=== PATIENT | male | born 1965 | race Caucasian/White ===

== ENCOUNTER 2017-03-25 20:58 | Inpatient (IN) | payer BC, MEDICARE ==
[2017-03-25] MEDS ORDERED: NICOTINE 7MG PATCH. TD (21:45)
[2017-03-25] MEDS ORDERED: DEXTROSE 50% 25 GM / 50ML DISP.SYRIN. IV (21:45)
[2017-03-25] MEDS: IV NORMAL SALINE 1000ML BAG 1,000 ML IV (22:00)
[2017-03-25] MEDS ORDERED: VANCOMYCIN 2 GM in IV DEXTROSE 5 %-0.2 % NACL 500 ML IV (23:30)
[2017-03-25] MEDS: LORazepam 1 MG TABLET PO (23:35)
[2017-03-25] MEDS: HYDROmorphone 2 MG/ML VIAL IV (23:35)
[2017-03-25] MEDS: INSULIN ASPART 300 UNITS/3 ML INSULN.PEN SQ (23:45)
[2017-03-26 00:10] LABS: ADD MAN DIFF? NO
[2017-03-26 00:12] LABS: BASO # 0.1 x10^3/uL (0.0-0.2); BASO % 1 % (0-3); EOS # 0.4 x10^3/uL (0.0-0.7); EOS % 3 % (0-3); HEMATOCRIT 44.3 % (39.0-53.0); HEMOGLOBIN 15.5 g/dL (13.0-17.5); LYMPH # 2.5 x10^3/uL (1.0-4.8); LYMPH % 18 % (24-48); MEAN CORPUSCULAR HEMOGLOBIN 32 pg (25-35); MEAN CORPUSCULAR HGB CONC 35 g/dL (31-37); MEAN CORPUSCULAR VOLUME 90 fL (79-100); MONO # 0.8 x10^3/uL (0.0-1.1); MONO % 6 % (0-9); NEUT # 10.1 x10^3uL (1.8-7.7); NEUT % 72 % (31-73); PLATELET COUNT 192 x10^3/uL (140-400); RED BLOOD COUNT 4.92 x10^6/uL (4.30-5.70); RED CELL DISTRIBUTION WIDTH 12.1 % (11.5-14.5); WHITE BLOOD COUNT 13.9 x10^3/uL (4.0-11.0)
[2017-03-26 00:23] LABS: ANION GAP 5 (6-14); BLOOD UREA NITROGEN 22 mg/dL (8-26); CALCIUM 8.5 mg/dL (8.5-10.1); CARBON DIOXIDE 31 mmol/L (21-32); CHLORIDE 99 mmol/L (98-107); CREATININE 0.9 mg/dL (0.7-1.3); GFR 89.7; GLUCOSE 413 mg/dL (70-99); POTASSIUM 4.4 mmol/L (3.5-5.1); SODIUM 135 mmol/L (136-145)
[2017-03-26] MEDS: PIPERACILLIN/TAZOBACTAM 4.5 GM in IV DEXTROSE 5% 100 ML IV (00:34)
[2017-03-26] MEDS: VANCOMYCIN PER PHARMACY MC ×3 (01:20→13:05)
[2017-03-26] MEDS: VANCOMYCIN 1.25 GM in IV 1/2 NORMAL SALINE 250 ML IV (04:18)
[2017-03-26] MEDS: PIPERACILLIN/TAZO IV Push 4.5 GM VIAL. IVP ×4 (06:00→23:34)
[2017-03-26 07:06] LABS: POC GLUCOSE 391 mg/dL (70-99)
[2017-03-26 08:55] LABS: POC GLUCOSE 335 mg/dL (70-99)
[2017-03-26] MEDS: ENOXAPARIN 40 MG/0.4 ML SYRINGE. SQ (10:07)
[2017-03-26] MEDS: IV NORMAL SALINE 1000ML BAG 1,000 ML IV ×2 (10:07→17:12)
[2017-03-26] MEDS: IV RINGERS,LACTATED 1000ML 1,000 ML IV (10:12)
[2017-03-26] MEDS ORDERED: ONDANSETRON PF 4 MG/2 ML VIAL. IV (10:15)
[2017-03-26] MEDS ORDERED: HYDROmorphone 2 MG/ML VIAL IV (10:15)
[2017-03-26] MEDS ORDERED: MORPHINE SULFATE 2 MG/ML DISP.SYRIN. IV (10:15)
[2017-03-26] MEDS ORDERED: PROCHLORPERAZINE 10 MG/2 ML VIAL. IV (10:15)
[2017-03-26] MEDS ORDERED: LIDOCAINE 1% PF 2 ML VIAL. ID (10:15)
[2017-03-26] MEDS ORDERED: fentaNYL PF VIAL 100 MCG/2 ML VIAL IV (10:15)
[2017-03-26] MEDS: INSULIN ASPART 300 UNITS/3 ML INSULN.PEN SQ ×5 (10:23→21:58)
[2017-03-26] MEDS ORDERED: DEXAMETHASONE SOD PHOS 20 MG/5 ML VIAL. (10:26)
[2017-03-26] MEDS ORDERED: ONDANSETRON PF 4 MG/2 ML VIAL. (10:26)
[2017-03-26] MEDS ORDERED: PROPOFOL 20 ML IV (10:26)
[2017-03-26] MEDS ORDERED: LIDOCAINE 2% PF Vial for OR 5 ML VIAL. (10:26)
[2017-03-26] MEDS ORDERED: fentaNYL PF VIAL 100 MCG/2 ML VIAL (10:28)
[2017-03-26] MEDS ORDERED: MIDAZOLAM HCL/PF 2 MG/2 ML VIAL. (10:29)
[2017-03-26] MEDS ORDERED: ePHEDrine PF IN SALINE 50 MG/5 ML DISP.SYRIN IV (11:43)
[2017-03-26] MEDS: VANCOMYCIN 1.25 GM in IV DEXTROSE 5 %-0.2 % NACL 250 ML IV (12:00)
[2017-03-26 12:14] LABS: POC GLUCOSE 272 mg/dL (70-99)
[2017-03-26] MEDS ORDERED: INSULIN ASPART 300 UNITS/3 ML INSULN.PEN SQ ×2 (12:15→13:00)
[2017-03-26] MEDS: INSULIN ASPART 100 UNIT/ML 10ML VIAL. SQ ×2 (12:15→13:00)
[2017-03-26] MEDS ORDERED: INSULIN ASPART 100 UNIT/ML 10ML VIAL. SQ (12:18)
[2017-03-26] MEDS: fentaNYL PF VIAL 100 MCG/2 ML VIAL IV ×2 (12:32→12:44)
[2017-03-26 13:22] LABS: POC GLUCOSE 289 mg/dL (70-99)
[2017-03-26] MEDS ORDERED: VANCOMYCIN 1.25 GM in IV 1/2 NORMAL SALINE 250 ML IV (16:00)
[2017-03-26 16:58] LABS: POC GLUCOSE 420 mg/dL (70-99)
[2017-03-26 20:53] LABS: POC GLUCOSE 488 mg/dL (70-99)
[2017-03-26] MEDS ORDERED: INSULIN DETEMIR 300 UNITS/3 ML INSULN.PEN. SQ ×2 (21:00)
[2017-03-26] MEDS: INSULIN DETEMIR 300 UNITS/3 ML INSULN.PEN. SQ (21:59)
[2017-03-26] MEDS: LORazepam 1 MG TABLET PO (22:38)
[2017-03-26] MEDS: oxyCODONE/APAP 5/325 1 TAB TABLET PO (22:38)
[2017-03-27] MEDS: VANCOMYCIN 1.25 GM in IV 1/2 NORMAL SALINE 250 ML IV ×2 (01:14→13:00)
[2017-03-27] MEDS: oxyCODONE/APAP 5/325 1 TAB TABLET PO ×5 (04:09→21:22)
[2017-03-27] MEDS: IV NORMAL SALINE 1000ML BAG 1,000 ML IV ×4 (05:27→23:48)
[2017-03-27] MEDS: PIPERACILLIN/TAZO IV Push 4.5 GM VIAL. IVP ×4 (06:17→23:48)
[2017-03-27] MEDS: INSULIN ASPART 300 UNITS/3 ML INSULN.PEN SQ ×8 (08:00→17:36)
[2017-03-27] MEDS: LORazepam 1 MG TABLET PO ×3 (08:53→23:48)
[2017-03-27] MEDS: ENOXAPARIN 40 MG/0.4 ML SYRINGE. SQ (08:54)
[2017-03-27 09:12] LABS: POC GLUCOSE 401 mg/dL (70-99)
[2017-03-27 11:42] LABS: POC GLUCOSE 276 mg/dL (70-99)
[2017-03-27 12:36] LABS: VANC TR 9.8 mcg/mL (10.0-20.0)
[2017-03-27] MEDS: VANCOMYCIN PER PHARMACY MC (13:26)
[2017-03-27] MEDS ORDERED: 1/2 NORMAL SALINE IV (13:30)
[2017-03-27] MEDS ORDERED: VANCOMYCIN 1.5 GM in IV DEXTROSE 5 %-0.2 % NACL 500 ML IV (13:30)
[2017-03-27] MEDS ORDERED: VANCOMYCIN IV (13:30)
[2017-03-27] MEDS: VANCOMYCIN 1.5 GM in IV DEXTROSE 5 %-0.2 % NACL 500 ML IV (13:36)
[2017-03-27] MEDS: NEOMY/BACITR/POLYMYXIN OINT PACKET. TP ×2 (13:53→21:00)
[2017-03-27 16:49] LABS: POC GLUCOSE 246 mg/dL (70-99)
[2017-03-27] MEDS: LACTOBACILLUS RHAMNOSUS GG 1 CAPSULE. PO (21:21)
[2017-03-27 21:33] LABS: POC GLUCOSE 108 mg/dL (70-99)
[2017-03-28] MEDS: VANCOMYCIN 1.5 GM in IV DEXTROSE 5 %-0.2 % NACL 500 ML IV ×2 (01:12→13:30)
[2017-03-28] MEDS: oxyCODONE/APAP 5/325 1 TAB TABLET PO ×4 (04:14→22:07)
[2017-03-28] MEDS: PIPERACILLIN/TAZO IV Push 4.5 GM VIAL. IVP ×4 (05:23→23:58)
[2017-03-28 05:37] LABS: ADD MAN DIFF? NO
[2017-03-28 05:45] LABS: BASO # 0.1 x10^3/uL (0.0-0.2); BASO % 1 % (0-3); EOS # 0.3 x10^3/uL (0.0-0.7); EOS % 2 % (0-3); HEMATOCRIT 44.5 % (39.0-53.0); HEMOGLOBIN 15.5 g/dL (13.0-17.5); LYMPH # 2.7 x10^3/uL (1.0-4.8); LYMPH % 23 % (24-48); MEAN CORPUSCULAR HEMOGLOBIN 31 pg (25-35); MEAN CORPUSCULAR HGB CONC 35 g/dL (31-37); MEAN CORPUSCULAR VOLUME 89 fL (79-100); MONO # 0.7 x10^3/uL (0.0-1.1); MONO % 6 % (0-9); NEUT % 68 % (31-73); PLATELET COUNT 229 x10^3/uL (140-400); RED BLOOD COUNT 5.02 x10^6/uL (4.30-5.70); RED CELL DISTRIBUTION WIDTH 12.6 % (11.5-14.5); WHITE BLOOD COUNT 11.6 x10^3/uL (4.0-11.0)
[2017-03-28 06:01] LABS: ANION GAP 7 (6-14); BLOOD UREA NITROGEN 12 mg/dL (8-26); CALCIUM 8.9 mg/dL (8.5-10.1); CARBON DIOXIDE 30 mmol/L (21-32); CHLORIDE 100 mmol/L (98-107); CREATININE 0.8 mg/dL (0.7-1.3); GFR 102.7; GLUCOSE 282 mg/dL (70-99); POTASSIUM 4.6 mmol/L (3.5-5.1); SODIUM 137 mmol/L (136-145)
[2017-03-28 08:37] LABS: POC GLUCOSE 239 mg/dL (70-99)
[2017-03-28] MEDS: NEOMY/BACITR/POLYMYXIN OINT PACKET. TP ×2 (09:00→22:01)
[2017-03-28] MEDS: LACTOBACILLUS RHAMNOSUS GG 1 CAPSULE. PO ×2 (09:04→22:06)
[2017-03-28] MEDS: ENOXAPARIN 40 MG/0.4 ML SYRINGE. SQ (09:07)
[2017-03-28] MEDS: INSULIN ASPART 300 UNITS/3 ML INSULN.PEN SQ ×6 (09:15→18:19)
[2017-03-28] MEDS: LORazepam 1 MG TABLET PO ×2 (12:57→22:08)
[2017-03-28 13:30] LABS: POC GLUCOSE 224 mg/dL (70-99)
[2017-03-28] MEDS: LIDOCAINE (700MG/PATCH) PATCH. TD (14:07)
[2017-03-28 18:47] LABS: POC GLUCOSE 277 mg/dL (70-99)
[2017-03-28 21:26] LABS: POC GLUCOSE 192 mg/dL (70-99)
[2017-03-28] MEDS: INSULIN DETEMIR 300 UNITS/3 ML INSULN.PEN. SQ (22:13)
[2017-03-29 03:10] LABS: HEMOGLOBIN A1C 10.2 % (4.8-5.6)
[2017-03-29 05:22] LABS: ADD MAN DIFF? NO
[2017-03-29] MEDS: PIPERACILLIN/TAZO IV Push 4.5 GM VIAL. IVP ×2 (05:56→13:35)
[2017-03-29 06:10] LABS: BASO # 0.1 x10^3/uL (0.0-0.2); BASO % 1 % (0-3); EOS # 0.3 x10^3/uL (0.0-0.7); EOS % 4 % (0-3); HEMATOCRIT 40.7 % (39.0-53.0); HEMOGLOBIN 14.3 g/dL (13.0-17.5); LYMPH # 2.6 x10^3/uL (1.0-4.8); LYMPH % 37 % (24-48); MEAN CORPUSCULAR HEMOGLOBIN 31 pg (25-35); MEAN CORPUSCULAR HGB CONC 35 g/dL (31-37); MEAN CORPUSCULAR VOLUME 89 fL (79-100); MONO # 0.7 x10^3/uL (0.0-1.1); MONO % 10 % (0-9); NEUT # 3.4 x10^3uL (1.8-7.7); NEUT % 48 % (31-73); PLATELET COUNT 233 x10^3/uL (140-400); RED BLOOD COUNT 4.58 x10^6/uL (4.30-5.70); RED CELL DISTRIBUTION WIDTH 12.2 % (11.5-14.5); WHITE BLOOD COUNT 7.1 x10^3/uL (4.0-11.0)
[2017-03-29 06:22] LABS: ANION GAP 7 (6-14); BLOOD UREA NITROGEN 12 mg/dL (8-26); CALCIUM 8.2 mg/dL (8.5-10.1); CARBON DIOXIDE 29 mmol/L (21-32); CHLORIDE 106 mmol/L (98-107); CREATININE 0.8 mg/dL (0.7-1.3); GFR 102.7; GLUCOSE 190 mg/dL (70-99); POTASSIUM 4.1 mmol/L (3.5-5.1); SODIUM 142 mmol/L (136-145)
[2017-03-29 08:32] LABS: POC GLUCOSE 189 mg/dL (70-99)
[2017-03-29] MEDS: NEOMY/BACITR/POLYMYXIN OINT PACKET. TP ×2 (09:00→21:43)
[2017-03-29] MEDS: LACTOBACILLUS RHAMNOSUS GG 1 CAPSULE. PO ×2 (09:10→21:52)
[2017-03-29] MEDS: LIDOCAINE (700MG/PATCH) PATCH. TD (09:10)
[2017-03-29] MEDS: oxyCODONE/APAP 5/325 1 TAB TABLET PO ×2 (09:10→21:52)
[2017-03-29] MEDS: ENOXAPARIN 40 MG/0.4 ML SYRINGE. SQ (09:11)
[2017-03-29] MEDS: INSULIN ASPART 300 UNITS/3 ML INSULN.PEN SQ ×7 (09:20→22:00)
[2017-03-29 14:25] LABS: POC GLUCOSE 80 mg/dL (70-99)
[2017-03-29] MEDS ORDERED: cefTRIAXone SODIUM 2 GM in IV DEXTROSE 5% 100 ML IV (16:15)
[2017-03-29 17:08] LABS: POC GLUCOSE 292 mg/dL (70-99)
[2017-03-29] MEDS: cefTRIAXone IV Push 2 GM VIAL. IVP (17:09)
[2017-03-29 21:07] LABS: POC GLUCOSE 220 mg/dL (70-99)
[2017-03-29] MEDS: LORazepam 1 MG TABLET PO (21:52)
[2017-03-29] MEDS: INSULIN DETEMIR 300 UNITS/3 ML INSULN.PEN. SQ (21:59)
[2017-03-30 06:10] LABS: ADD MAN DIFF? NO
[2017-03-30 06:26] LABS: BASO # 0.1 x10^3/uL (0.0-0.2); BASO % 1 % (0-3); EOS # 0.3 x10^3/uL (0.0-0.7); EOS % 4 % (0-3); HEMATOCRIT 43.7 % (39.0-53.0); HEMOGLOBIN 15.1 g/dL (13.0-17.5); LYMPH # 2.5 x10^3/uL (1.0-4.8); LYMPH % 37 % (24-48); MEAN CORPUSCULAR HEMOGLOBIN 31 pg (25-35); MEAN CORPUSCULAR HGB CONC 35 g/dL (31-37); MEAN CORPUSCULAR VOLUME 88 fL (79-100); MONO # 0.7 x10^3/uL (0.0-1.1); MONO % 11 % (0-9); NEUT # 3.1 x10^3uL (1.8-7.7); NEUT % 47 % (31-73); PLATELET COUNT 263 x10^3/uL (140-400); RED BLOOD COUNT 4.95 x10^6/uL (4.30-5.70); RED CELL DISTRIBUTION WIDTH 12.2 % (11.5-14.5); WHITE BLOOD COUNT 6.7 x10^3/uL (4.0-11.0)
[2017-03-30 06:44] LABS: ANION GAP 6 (6-14); BLOOD UREA NITROGEN 14 mg/dL (8-26); CALCIUM 9.1 mg/dL (8.5-10.1); CARBON DIOXIDE 33 mmol/L (21-32); CHLORIDE 103 mmol/L (98-107); CREATININE 0.8 mg/dL (0.7-1.3); GFR 102.7; GLUCOSE 200 mg/dL (70-99); POTASSIUM 4.1 mmol/L (3.5-5.1); SODIUM 142 mmol/L (136-145)
[2017-03-30 07:25] LABS: SEDIMENTATION RATE 34 (0-15)
[2017-03-30 08:37] LABS: POC GLUCOSE 173 mg/dL (70-99)
[2017-03-30] MEDS: LACTOBACILLUS RHAMNOSUS GG 1 CAPSULE. PO ×2 (08:48→21:59)
[2017-03-30] MEDS: INSULIN ASPART 300 UNITS/3 ML INSULN.PEN SQ ×6 (08:53→17:22)
[2017-03-30] MEDS: NEOMY/BACITR/POLYMYXIN OINT PACKET. TP ×2 (08:55→22:05)
[2017-03-30] MEDS: LIDOCAINE (700MG/PATCH) PATCH. TD (08:55)
[2017-03-30] MEDS: oxyCODONE/APAP 5/325 1 TAB TABLET PO ×2 (08:56→21:59)
[2017-03-30 11:38] LABS: POC GLUCOSE 133 mg/dL (70-99)
[2017-03-30] MEDS ORDERED: cefTRIAXone SODIUM 2 GM in IV DEXTROSE 5% 100 ML IV (12:30)
[2017-03-30] MEDS: cefTRIAXone IV Push 2 GM VIAL. IVP (13:00)
[2017-03-30 17:08] LABS: POC GLUCOSE 243 mg/dL (70-99)
[2017-03-30 20:47] LABS: POC GLUCOSE 287 mg/dL (70-99)
[2017-03-30] MEDS: LORazepam 1 MG TABLET PO (22:00)
[2017-03-30] MEDS: INSULIN DETEMIR 300 UNITS/3 ML INSULN.PEN. SQ (22:05)
[2017-03-31 04:59] LABS: ADD MAN DIFF? NO
[2017-03-31 05:27] LABS: ANION GAP 9 (6-14); BLOOD UREA NITROGEN 12 mg/dL (8-26); CALCIUM 8.5 mg/dL (8.5-10.1); CARBON DIOXIDE 29 mmol/L (21-32); CHLORIDE 101 mmol/L (98-107); CREATININE 0.8 mg/dL (0.7-1.3); GFR 102.7; GLUCOSE 183 mg/dL (70-99); POTASSIUM 3.8 mmol/L (3.5-5.1); SODIUM 139 mmol/L (136-145)
[2017-03-31 05:29] LABS: BASO # 0.1 x10^3/uL (0.0-0.2); BASO % 1 % (0-3); EOS # 0.3 x10^3/uL (0.0-0.7); EOS % 4 % (0-3); HEMATOCRIT 42.2 % (39.0-53.0); HEMOGLOBIN 14.9 g/dL (13.0-17.5); LYMPH # 2.3 x10^3/uL (1.0-4.8); LYMPH % 34 % (24-48); MEAN CORPUSCULAR HEMOGLOBIN 32 pg (25-35); MEAN CORPUSCULAR HGB CONC 35 g/dL (31-37); MEAN CORPUSCULAR VOLUME 90 fL (79-100); MONO # 0.7 x10^3/uL (0.0-1.1); MONO % 11 % (0-9); NEUT # 3.5 x10^3uL (1.8-7.7); NEUT % 51 % (31-73); PLATELET COUNT 249 x10^3/uL (140-400); RED CELL DISTRIBUTION WIDTH 12.4 % (11.5-14.5); WHITE BLOOD COUNT 6.9 x10^3/uL (4.0-11.0)
[2017-03-31] MEDS: NEOMY/BACITR/POLYMYXIN OINT PACKET. TP ×2 (09:00→21:00)
[2017-03-31] MEDS: LIDOCAINE (700MG/PATCH) PATCH. TD (09:22)
[2017-03-31] MEDS: CEPHALEXIN 250 MG CAPSULE. PO ×4 (09:23→21:41)
[2017-03-31] MEDS: LACTOBACILLUS RHAMNOSUS GG 1 CAPSULE. PO ×2 (09:23→21:41)
[2017-03-31 09:28] LABS: POC GLUCOSE 175 mg/dL (70-99)
[2017-03-31] MEDS: INSULIN ASPART 300 UNITS/3 ML INSULN.PEN SQ ×6 (09:28→17:27)
[2017-03-31 12:26] LABS: POC GLUCOSE 235 mg/dL (70-99)
[2017-03-31 17:49] LABS: POC GLUCOSE 312 mg/dL (70-99)
[2017-03-31 21:29] LABS: POC GLUCOSE 389 mg/dL (70-99)
[2017-03-31] MEDS: INSULIN DETEMIR 300 UNITS/3 ML INSULN.PEN. SQ (21:46)
[2017-04-01 05:58] LABS: ADD MAN DIFF? NO
[2017-04-01 06:21] LABS: ANION GAP 8 (6-14); BLOOD UREA NITROGEN 19 mg/dL (8-26); CALCIUM 8.7 mg/dL (8.5-10.1); CARBON DIOXIDE 30 mmol/L (21-32); CHLORIDE 100 mmol/L (98-107); GFR 79.4; GLUCOSE 328 mg/dL (70-99); POTASSIUM 4.3 mmol/L (3.5-5.1); SODIUM 138 mmol/L (136-145)
[2017-04-01 06:43] LABS: BASO # 0.1 x10^3/uL (0.0-0.2); BASO % 1 % (0-3); EOS # 0.2 x10^3/uL (0.0-0.7); EOS % 3 % (0-3); HEMATOCRIT 44.5 % (39.0-53.0); HEMOGLOBIN 15.5 g/dL (13.0-17.5); LYMPH # 1.9 x10^3/uL (1.0-4.8); LYMPH % 27 % (24-48); MEAN CORPUSCULAR HEMOGLOBIN 32 pg (25-35); MEAN CORPUSCULAR HGB CONC 35 g/dL (31-37); MEAN CORPUSCULAR VOLUME 91 fL (79-100); MONO # 0.7 x10^3/uL (0.0-1.1); MONO % 10 % (0-9); NEUT # 4.2 x10^3uL (1.8-7.7); NEUT % 59 % (31-73); PLATELET COUNT 273 x10^3/uL (140-400); RED BLOOD COUNT 4.91 x10^6/uL (4.30-5.70); RED CELL DISTRIBUTION WIDTH 12.6 % (11.5-14.5); WHITE BLOOD COUNT 7.1 x10^3/uL (4.0-11.0)
[2017-04-01] MEDS: oxyCODONE/APAP 5/325 1 TAB TABLET PO ×2 (09:58→18:57)
[2017-04-01] MEDS: CEPHALEXIN 250 MG CAPSULE. PO ×4 (09:58→20:40)
[2017-04-01] MEDS: LACTOBACILLUS RHAMNOSUS GG 1 CAPSULE. PO ×2 (09:58→20:40)
[2017-04-01] MEDS: NEOMY/BACITR/POLYMYXIN OINT PACKET. TP ×2 (09:59→20:40)
[2017-04-01] MEDS: LIDOCAINE (700MG/PATCH) PATCH. TD (10:02)
[2017-04-01] MEDS: INSULIN ASPART 300 UNITS/3 ML INSULN.PEN SQ ×6 (10:12→18:57)
[2017-04-01 11:23] LABS: POC GLUCOSE 362 mg/dL (70-99)
[2017-04-01 11:23] LABS: POC GLUCOSE 320 mg/dL (70-99)
[2017-04-01 16:55] LABS: POC GLUCOSE 338 mg/dL (70-99)
[2017-04-01] MEDS: INSULIN DETEMIR 300 UNITS/3 ML INSULN.PEN. SQ (20:46)
[2017-04-02 01:01] LABS: POC GLUCOSE 275 mg/dL (70-99)
[2017-04-02 05:46] LABS: ADD MAN DIFF? NO
[2017-04-02 05:58] LABS: BASO # 0.1 x10^3/uL (0.0-0.2); BASO % 1 % (0-3); EOS # 0.4 x10^3/uL (0.0-0.7); EOS % 4 % (0-3); HEMATOCRIT 43.2 % (39.0-53.0); LYMPH # 2.9 x10^3/uL (1.0-4.8); LYMPH % 32 % (24-48); MEAN CORPUSCULAR HEMOGLOBIN 31 pg (25-35); MEAN CORPUSCULAR HGB CONC 35 g/dL (31-37); MEAN CORPUSCULAR VOLUME 90 fL (79-100); MONO # 0.9 x10^3/uL (0.0-1.1); MONO % 10 % (0-9); NEUT # 4.9 x10^3uL (1.8-7.7); NEUT % 53 % (31-73); PLATELET COUNT 247 x10^3/uL (140-400); RED BLOOD COUNT 4.78 x10^6/uL (4.30-5.70); RED CELL DISTRIBUTION WIDTH 12.1 % (11.5-14.5); WHITE BLOOD COUNT 9.2 x10^3/uL (4.0-11.0)
[2017-04-02 06:19] LABS: BLOOD UREA NITROGEN 22 mg/dL (8-26); CALCIUM 8.7 mg/dL (8.5-10.1); CARBON DIOXIDE 31 mmol/L (21-32); CHLORIDE 100 mmol/L (98-107); CREATININE 0.8 mg/dL (0.7-1.3); GFR 102.7; GLUCOSE 162 mg/dL (70-99)
[2017-04-02 06:33] LABS: ANION GAP 7 (6-14); POTASSIUM 4.3 mmol/L (3.5-5.1); SODIUM 138 mmol/L (136-145)
[2017-04-02 08:39] LABS: POC GLUCOSE 176 mg/dL (70-99)
[2017-04-02] MEDS: LACTOBACILLUS RHAMNOSUS GG 1 CAPSULE. PO ×2 (08:49→21:12)
[2017-04-02] MEDS: NEOMY/BACITR/POLYMYXIN OINT PACKET. TP ×2 (08:49→21:09)
[2017-04-02] MEDS: INSULIN ASPART 300 UNITS/3 ML INSULN.PEN SQ ×6 (08:56→18:27)
[2017-04-02] MEDS: LIDOCAINE (700MG/PATCH) PATCH. TD (08:57)
[2017-04-02] MEDS: CEPHALEXIN 250 MG CAPSULE. PO ×4 (08:58→21:12)
[2017-04-02] MEDS: oxyCODONE/APAP 5/325 1 TAB TABLET PO (18:28)
[2017-04-02 19:07] LABS: POC GLUCOSE 234 mg/dL (70-99)
[2017-04-02 20:01] LABS: POC GLUCOSE 205 mg/dL (70-99)
[2017-04-02] MEDS: INSULIN DETEMIR 300 UNITS/3 ML INSULN.PEN. SQ (21:09)
[2017-04-02 21:11] LABS: POC GLUCOSE 291 mg/dL (70-99)
[2017-04-03 05:15] LABS: ADD MAN DIFF? NO
[2017-04-03 05:31] LABS: BASO # 0.1 x10^3/uL (0.0-0.2); BASO % 1 % (0-3); EOS # 0.4 x10^3/uL (0.0-0.7); EOS % 4 % (0-3); HEMATOCRIT 44.2 % (39.0-53.0); HEMOGLOBIN 15.5 g/dL (13.0-17.5); LYMPH # 3.5 x10^3/uL (1.0-4.8); LYMPH % 37 % (24-48); MEAN CORPUSCULAR HEMOGLOBIN 31 pg (25-35); MEAN CORPUSCULAR HGB CONC 35 g/dL (31-37); MEAN CORPUSCULAR VOLUME 90 fL (79-100); MONO # 0.9 x10^3/uL (0.0-1.1); MONO % 9 % (0-9); NEUT # 4.8 x10^3uL (1.8-7.7); NEUT % 50 % (31-73); PLATELET COUNT 255 x10^3/uL (140-400); RED BLOOD COUNT 4.92 x10^6/uL (4.30-5.70); RED CELL DISTRIBUTION WIDTH 12.4 % (11.5-14.5); WHITE BLOOD COUNT 9.6 x10^3/uL (4.0-11.0)
[2017-04-03 05:54] LABS: ANION GAP 9 (6-14); BLOOD UREA NITROGEN 21 mg/dL (8-26); CALCIUM 8.6 mg/dL (8.5-10.1); CARBON DIOXIDE 28 mmol/L (21-32); CHLORIDE 101 mmol/L (98-107); CREATININE 0.8 mg/dL (0.7-1.3); GFR 102.7; GLUCOSE 149 mg/dL (70-99); SODIUM 138 mmol/L (136-145)
[2017-04-03] MEDS: LACTOBACILLUS RHAMNOSUS GG 1 CAPSULE. PO ×2 (09:10→22:44)
[2017-04-03] MEDS: CEPHALEXIN 250 MG CAPSULE. PO ×4 (09:10→22:44)
[2017-04-03] MEDS: NEOMY/BACITR/POLYMYXIN OINT PACKET. TP ×2 (09:14→22:44)
[2017-04-03] MEDS: LIDOCAINE (700MG/PATCH) PATCH. TD (09:14)
[2017-04-03] MEDS: INSULIN ASPART 300 UNITS/3 ML INSULN.PEN SQ ×6 (09:16→18:37)
[2017-04-03] MEDS: oxyCODONE/APAP 5/325 1 TAB TABLET PO ×2 (10:41→18:32)
[2017-04-03] MEDS: LORazepam 1 MG TABLET PO (18:32)
[2017-04-03 18:52] LABS: POC GLUCOSE 202 mg/dL (70-99)
[2017-04-03 18:52] LABS: POC GLUCOSE 293 mg/dL (70-99)
[2017-04-03 18:52] LABS: POC GLUCOSE 245 mg/dL (70-99)
[2017-04-03 21:57] LABS: POC GLUCOSE 236 mg/dL (70-99)
[2017-04-03] MEDS: INSULIN DETEMIR 300 UNITS/3 ML INSULN.PEN. SQ (22:53)
[2017-04-04 07:40] LABS: POC GLUCOSE 241 mg/dL (70-99)
[2017-04-04] MEDS: LIDOCAINE (700MG/PATCH) PATCH. TD (09:44)
[2017-04-04] MEDS: NEOMY/BACITR/POLYMYXIN OINT PACKET. TP ×2 (09:47→21:00)
[2017-04-04] MEDS: LACTOBACILLUS RHAMNOSUS GG 1 CAPSULE. PO ×2 (09:52→20:57)
[2017-04-04] MEDS: oxyCODONE/APAP 5/325 1 TAB TABLET PO ×2 (09:52→20:57)
[2017-04-04] MEDS: CEPHALEXIN 250 MG CAPSULE. PO ×4 (09:53→20:57)
[2017-04-04] MEDS: INSULIN ASPART 300 UNITS/3 ML INSULN.PEN SQ ×6 (09:59→17:52)
[2017-04-04 11:29] LABS: POC GLUCOSE 235 mg/dL (70-99)
[2017-04-04 16:38] LABS: POC GLUCOSE 130 mg/dL (70-99)
[2017-04-04 20:52] LABS: POC GLUCOSE 181 mg/dL (70-99)
[2017-04-04] MEDS: LORazepam 1 MG TABLET PO (20:57)
[2017-04-04] MEDS: INSULIN DETEMIR 300 UNITS/3 ML INSULN.PEN. SQ (21:06)
[2017-04-05] MEDS: LORazepam 1 MG TABLET PO ×2 (06:23→21:07)
[2017-04-05] MEDS: oxyCODONE/APAP 5/325 1 TAB TABLET PO ×2 (06:23→18:09)
[2017-04-05] MEDS: LIDOCAINE (700MG/PATCH) PATCH. TD (08:11)
[2017-04-05] MEDS: LACTOBACILLUS RHAMNOSUS GG 1 CAPSULE. PO ×2 (08:12→21:07)
[2017-04-05] MEDS: NEOMY/BACITR/POLYMYXIN OINT PACKET. TP ×2 (08:12→21:00)
[2017-04-05] MEDS: CEPHALEXIN 250 MG CAPSULE. PO ×4 (08:12→21:07)
[2017-04-05] MEDS: INSULIN ASPART 300 UNITS/3 ML INSULN.PEN SQ ×6 (08:17→18:17)
[2017-04-05 11:29] LABS: POC GLUCOSE 97 mg/dL (70-99)
[2017-04-05 16:24] LABS: POC GLUCOSE 200 mg/dL (70-99)
[2017-04-05 21:03] LABS: POC GLUCOSE 299 mg/dL (70-99)
[2017-04-05 21:03] LABS: POC GLUCOSE 196 mg/dL (70-99)
[2017-04-05] MEDS: INSULIN DETEMIR 300 UNITS/3 ML INSULN.PEN. SQ (21:12)
[2017-04-06 07:36] LABS: POC GLUCOSE 184 mg/dL (70-99)
[2017-04-06] MEDS: NEOMY/BACITR/POLYMYXIN OINT PACKET. TP ×2 (09:00→21:00)
[2017-04-06] MEDS: LIDOCAINE (700MG/PATCH) PATCH. TD (09:00)
[2017-04-06] MEDS: CEPHALEXIN 250 MG CAPSULE. PO ×4 (09:13→21:44)
[2017-04-06] MEDS: LACTOBACILLUS RHAMNOSUS GG 1 CAPSULE. PO ×2 (09:13→21:43)
[2017-04-06] MEDS: oxyCODONE/APAP 5/325 1 TAB TABLET PO ×4 (09:14→22:15)
[2017-04-06] MEDS: INSULIN ASPART 300 UNITS/3 ML INSULN.PEN SQ ×6 (09:20→17:23)
[2017-04-06 11:36] LABS: POC GLUCOSE 140 mg/dL (70-99)
[2017-04-06] MEDS: LORazepam 1 MG TABLET PO (13:15)
[2017-04-06 15:22] LABS: POC GLUCOSE 122 mg/dL (70-99)
[2017-04-06 20:59] LABS: POC GLUCOSE 206 mg/dL (70-99)
[2017-04-06] MEDS: INSULIN DETEMIR 300 UNITS/3 ML INSULN.PEN. SQ (21:48)
[2017-04-07] MEDS: LORazepam 1 MG TABLET PO ×3 (03:52→20:17)
[2017-04-07] MEDS: oxyCODONE/APAP 5/325 1 TAB TABLET PO ×3 (05:54→16:53)
[2017-04-07 07:32] LABS: POC GLUCOSE 232 mg/dL (70-99)
[2017-04-07] MEDS: LACTOBACILLUS RHAMNOSUS GG 1 CAPSULE. PO ×2 (09:00→20:17)
[2017-04-07] MEDS: NEOMY/BACITR/POLYMYXIN OINT PACKET. TP ×2 (09:00→20:17)
[2017-04-07] MEDS: LIDOCAINE (700MG/PATCH) PATCH. TD (09:30)
[2017-04-07] MEDS: CEPHALEXIN 250 MG CAPSULE. PO ×4 (09:30→20:22)
[2017-04-07] MEDS: INSULIN ASPART 300 UNITS/3 ML INSULN.PEN SQ ×6 (09:40→16:56)
[2017-04-07 11:23] LABS: POC GLUCOSE 138 mg/dL (70-99)
[2017-04-07 16:48] LABS: POC GLUCOSE 145 mg/dL (70-99)
[2017-04-07 20:22] LABS: POC GLUCOSE 137 mg/dL (70-99)
[2017-04-07] MEDS: INSULIN DETEMIR 300 UNITS/3 ML INSULN.PEN. SQ (20:26)
[2017-04-08] MEDS: INSULIN ASPART 300 UNITS/3 ML INSULN.PEN SQ ×6 (07:30→17:34)
[2017-04-08 08:11] LABS: POC GLUCOSE 101 mg/dL (70-99)
[2017-04-08] MEDS: LIDOCAINE (700MG/PATCH) PATCH. TD (08:58)
[2017-04-08] MEDS: NEOMY/BACITR/POLYMYXIN OINT PACKET. TP ×3 (08:59→22:59)
[2017-04-08] MEDS: CEPHALEXIN 250 MG CAPSULE. PO ×4 (08:59→22:00)
[2017-04-08] MEDS: LORazepam 1 MG TABLET PO ×2 (08:59→22:00)
[2017-04-08] MEDS: LACTOBACILLUS RHAMNOSUS GG 1 CAPSULE. PO ×2 (08:59→22:00)
[2017-04-08 11:48] LABS: POC GLUCOSE 403 mg/dL (70-99)
[2017-04-08] MEDS: oxyCODONE/APAP 5/325 1 TAB TABLET PO ×2 (12:24→22:01)
[2017-04-08 13:31] LABS: POC GLUCOSE 278 mg/dL (70-99)
[2017-04-08 17:07] LABS: POC GLUCOSE 243 mg/dL (70-99)
[2017-04-08 21:19] LABS: POC GLUCOSE 131 mg/dL (70-99)
[2017-04-08] MEDS: INSULIN DETEMIR 300 UNITS/3 ML INSULN.PEN. SQ (22:08)
[2017-04-09 08:24] LABS: POC GLUCOSE 271 mg/dL (70-99)
[2017-04-09] MEDS: NEOMY/BACITR/POLYMYXIN OINT PACKET. TP ×2 (08:29→21:11)
[2017-04-09] MEDS: oxyCODONE/APAP 5/325 1 TAB TABLET PO (08:30)
[2017-04-09] MEDS: LACTOBACILLUS RHAMNOSUS GG 1 CAPSULE. PO ×2 (08:30→20:23)
[2017-04-09] MEDS: LORazepam 1 MG TABLET PO ×2 (08:30→20:23)
[2017-04-09] MEDS: INSULIN ASPART 300 UNITS/3 ML INSULN.PEN SQ ×6 (08:34→18:26)
[2017-04-09] MEDS: CEPHALEXIN 250 MG CAPSULE. PO ×4 (08:36→20:23)
[2017-04-09] MEDS: LIDOCAINE (700MG/PATCH) PATCH. TD (08:36)
[2017-04-09 09:42] LABS: ADD MAN DIFF? NO
[2017-04-09 09:44] LABS: BASO # 0.1 x10^3/uL (0.0-0.2); BASO % 1 % (0-3); EOS # 0.2 x10^3/uL (0.0-0.7); EOS % 3 % (0-3); HEMATOCRIT 47.1 % (39.0-53.0); HEMOGLOBIN 16.2 g/dL (13.0-17.5); LYMPH # 1.8 x10^3/uL (1.0-4.8); LYMPH % 24 % (24-48); MEAN CORPUSCULAR HEMOGLOBIN 31 pg (25-35); MEAN CORPUSCULAR HGB CONC 34 g/dL (31-37); MEAN CORPUSCULAR VOLUME 91 fL (79-100); MONO # 0.5 x10^3/uL (0.0-1.1); MONO % 7 % (0-9); NEUT # 4.9 x10^3uL (1.8-7.7); NEUT % 65 % (31-73); PLATELET COUNT 249 x10^3/uL (140-400); RED CELL DISTRIBUTION WIDTH 12.7 % (11.5-14.5); WHITE BLOOD COUNT 7.5 x10^3/uL (4.0-11.0)
[2017-04-09 10:49] LABS: SEDIMENTATION RATE 36 (0-15)
[2017-04-09 11:30] LABS: POC GLUCOSE 271 mg/dL (70-99)
[2017-04-09 18:17] LABS: POC GLUCOSE 362 mg/dL (70-99)
[2017-04-09] MEDS: INSULIN DETEMIR 300 UNITS/3 ML INSULN.PEN. SQ (21:11)
[2017-04-09 21:15] LABS: POC GLUCOSE 241 mg/dL (70-99)
[2017-04-10 01:16] LABS: HEMOGLOBIN A1C 9.6 % (4.8-5.6)
[2017-04-10] MEDS: LORazepam 1 MG TABLET PO ×2 (04:55→21:52)
[2017-04-10 08:09] LABS: POC GLUCOSE 285 mg/dL (70-99)
[2017-04-10] MEDS: LACTOBACILLUS RHAMNOSUS GG 1 CAPSULE. PO ×2 (08:57→21:52)
[2017-04-10] MEDS: NEOMY/BACITR/POLYMYXIN OINT PACKET. TP ×2 (08:57→21:52)
[2017-04-10] MEDS: CEPHALEXIN 250 MG CAPSULE. PO (08:57)
[2017-04-10] MEDS: oxyCODONE/APAP 5/325 1 TAB TABLET PO ×2 (08:58→16:58)
[2017-04-10] MEDS: LIDOCAINE (700MG/PATCH) PATCH. TD (08:58)
[2017-04-10] MEDS: INSULIN ASPART 300 UNITS/3 ML INSULN.PEN SQ ×7 (09:03→22:06)
[2017-04-10 12:26] LABS: POC GLUCOSE 176 mg/dL (70-99)
[2017-04-10 17:11] LABS: POC GLUCOSE 68 mg/dL (70-99)
[2017-04-10 18:34] LABS: POC GLUCOSE 290 mg/dL (70-99)
[2017-04-10 21:46] LABS: POC GLUCOSE 339 mg/dL (70-99)
[2017-04-10] MEDS: INSULIN DETEMIR 300 UNITS/3 ML INSULN.PEN. SQ (22:00)
[2017-04-11 07:13] LABS: POC GLUCOSE 215 mg/dL (70-99)
[2017-04-11] MEDS: LIDOCAINE (700MG/PATCH) PATCH. TD (08:45)
[2017-04-11] MEDS: NEOMY/BACITR/POLYMYXIN OINT PACKET. TP ×2 (08:46→20:49)
[2017-04-11] MEDS: oxyCODONE/APAP 5/325 1 TAB TABLET PO ×2 (08:46→18:03)
[2017-04-11] MEDS: LACTOBACILLUS RHAMNOSUS GG 1 CAPSULE. PO ×2 (08:46→20:49)
[2017-04-11] MEDS: LORazepam 1 MG TABLET PO ×2 (08:46→18:03)
[2017-04-11] MEDS: INSULIN ASPART 300 UNITS/3 ML INSULN.PEN SQ ×6 (08:53→16:55)
[2017-04-11 11:19] LABS: POC GLUCOSE 256 mg/dL (70-99)
[2017-04-11 15:40] LABS: POC GLUCOSE 93 mg/dL (70-99)
[2017-04-11 20:36] LABS: POC GLUCOSE 245 mg/dL (70-99)
[2017-04-11] MEDS: INSULIN DETEMIR 300 UNITS/3 ML INSULN.PEN. SQ (20:52)
[2017-04-12] MEDS: INSULIN ASPART 300 UNITS/3 ML INSULN.PEN SQ ×6 (07:30→17:07)
[2017-04-12] MEDS ORDERED: HALOPERIDOL 5 MG TABLET. PO ×2 (07:45→22:15)
[2017-04-12 08:09] LABS: POC GLUCOSE 123 mg/dL (70-99)
[2017-04-12] MEDS: oxyCODONE/APAP 5/325 1 TAB TABLET PO ×2 (08:42→17:02)
[2017-04-12] MEDS: LACTOBACILLUS RHAMNOSUS GG 1 CAPSULE. PO ×2 (08:42→21:56)
[2017-04-12] MEDS: LORazepam 1 MG TABLET PO (08:42)
[2017-04-12] MEDS: NEOMY/BACITR/POLYMYXIN OINT PACKET. TP ×2 (08:43→21:56)
[2017-04-12] MEDS: LIDOCAINE (700MG/PATCH) PATCH. TD (08:43)
[2017-04-12 10:49] LABS: POC GLUCOSE 233 mg/dL (70-99)
[2017-04-12 16:30] LABS: POC GLUCOSE 163 mg/dL (70-99)
[2017-04-12] MEDS: HALOPERIDOL 5 MG TABLET. PO (17:03)
[2017-04-12] MEDS: INSULIN DETEMIR 300 UNITS/3 ML INSULN.PEN. SQ (21:00)
[2017-04-12 21:01] LABS: POC GLUCOSE 79 mg/dL (70-99)
[2017-04-12] MEDS: LORazepam 0.5 MG TABLET PO (21:56)
[2017-04-13] MEDS: LIDOCAINE (700MG/PATCH) PATCH. TD (08:34)
[2017-04-13] MEDS: LACTOBACILLUS RHAMNOSUS GG 1 CAPSULE. PO ×2 (08:38→21:00)
[2017-04-13] MEDS: INSULIN ASPART 300 UNITS/3 ML INSULN.PEN SQ ×6 (08:38→17:30)
[2017-04-13] MEDS: NEOMY/BACITR/POLYMYXIN OINT PACKET. TP ×2 (08:39→21:00)
[2017-04-13 08:40] LABS: POC GLUCOSE 236 mg/dL (70-99)
[2017-04-13 12:24] LABS: POC GLUCOSE 328 mg/dL (70-99)
[2017-04-13] MEDS: oxyCODONE/APAP 5/325 1 TAB TABLET PO ×2 (14:57→23:10)
[2017-04-13] MEDS: LORazepam 0.5 MG TABLET PO ×2 (14:57→23:10)
[2017-04-13 16:33] LABS: POC GLUCOSE 249 mg/dL (70-99)
[2017-04-13 21:25] LABS: POC GLUCOSE 195 mg/dL (70-99)
[2017-04-13] MEDS: INSULIN DETEMIR 300 UNITS/3 ML INSULN.PEN. SQ (21:27)
[2017-04-14 04:50] LABS: ADD MAN DIFF? NO
[2017-04-14 05:06] LABS: BASO # 0.1 x10^3/uL (0.0-0.2); BASO % 1 % (0-3); EOS # 0.3 x10^3/uL (0.0-0.7); EOS % 5 % (0-3); HEMATOCRIT 40.9 % (39.0-53.0); HEMOGLOBIN 14.6 g/dL (13.0-17.5); LYMPH # 2.8 x10^3/uL (1.0-4.8); LYMPH % 37 % (24-48); MEAN CORPUSCULAR HEMOGLOBIN 32 pg (25-35); MEAN CORPUSCULAR HGB CONC 36 g/dL (31-37); MEAN CORPUSCULAR VOLUME 89 fL (79-100); MONO # 0.7 x10^3/uL (0.0-1.1); MONO % 9 % (0-9); NEUT # 3.7 x10^3uL (1.8-7.7); NEUT % 49 % (31-73); PLATELET COUNT 198 x10^3/uL (140-400); RED CELL DISTRIBUTION WIDTH 12.8 % (11.5-14.5); WHITE BLOOD COUNT 7.5 x10^3/uL (4.0-11.0)
[2017-04-14 05:37] LABS: ANION GAP 8 (6-14); BLOOD UREA NITROGEN 25 mg/dL (8-26); CALCIUM 8.2 mg/dL (8.5-10.1); CARBON DIOXIDE 27 mmol/L (21-32); CHLORIDE 102 mmol/L (98-107); CREATININE 0.9 mg/dL (0.7-1.3); GFR 89.7; GLUCOSE 197 mg/dL (70-99); SODIUM 137 mmol/L (136-145)
[2017-04-14 08:37] LABS: POC GLUCOSE 186 mg/dL (70-99)
[2017-04-14] MEDS: NEOMY/BACITR/POLYMYXIN OINT PACKET. TP ×2 (09:00→21:00)
[2017-04-14] MEDS: LACTOBACILLUS RHAMNOSUS GG 1 CAPSULE. PO ×2 (09:00→21:00)
[2017-04-14] MEDS: oxyCODONE/APAP 5/325 1 TAB TABLET PO ×2 (09:06→21:34)
[2017-04-14] MEDS: LORazepam 0.5 MG TABLET PO ×2 (09:06→21:31)
[2017-04-14] MEDS: INSULIN ASPART 300 UNITS/3 ML INSULN.PEN SQ ×6 (09:10→16:15)
[2017-04-14] MEDS: LIDOCAINE (700MG/PATCH) PATCH. TD (09:11)
[2017-04-14 12:53] LABS: POC GLUCOSE 112 mg/dL (70-99)
[2017-04-14 17:26] LABS: POC GLUCOSE 120 mg/dL (70-99)
[2017-04-14 17:26] LABS: POC GLUCOSE 128 mg/dL (70-99)
[2017-04-14 21:27] LABS: POC GLUCOSE 249 mg/dL (70-99)
[2017-04-14] MEDS: INSULIN DETEMIR 300 UNITS/3 ML INSULN.PEN. SQ (21:37)
[2017-04-14 21:59] LABS: C DIFF BY PCR Positive (Negative)
[2017-04-15] MEDS: metroNIDAZOLE 500 MG TABLET PO ×4 (00:02→16:53)
[2017-04-15] MEDS: INSULIN ASPART 300 UNITS/3 ML INSULN.PEN SQ ×6 (07:30→16:57)
[2017-04-15 07:54] LABS: POC GLUCOSE 140 mg/dL (70-99)
[2017-04-15] MEDS: LACTOBACILLUS RHAMNOSUS GG 1 CAPSULE. PO ×2 (09:11→20:57)
[2017-04-15] MEDS: LORazepam 0.5 MG TABLET PO ×2 (09:11→16:54)
[2017-04-15] MEDS: oxyCODONE/APAP 5/325 1 TAB TABLET PO ×3 (09:11→22:18)
[2017-04-15] MEDS: ONDANSETRON ODT 4 MG TAB.RAPDIS. PO (09:11)
[2017-04-15] MEDS: LIDOCAINE (700MG/PATCH) PATCH. TD ×2 (09:11→13:15)
[2017-04-15] MEDS: NEOMY/BACITR/POLYMYXIN OINT PACKET. TP ×2 (09:11→20:57)
[2017-04-15 12:13] LABS: POC GLUCOSE 261 mg/dL (70-99)
[2017-04-15 16:51] LABS: POC GLUCOSE 245 mg/dL (70-99)
[2017-04-15 20:58] LABS: POC GLUCOSE 193 mg/dL (70-99)
[2017-04-15] MEDS: INSULIN DETEMIR 300 UNITS/3 ML INSULN.PEN. SQ (21:10)
[2017-04-16] MEDS: LORazepam 0.5 MG TABLET PO ×2 (03:33→15:22)
[2017-04-16] MEDS: oxyCODONE/APAP 5/325 1 TAB TABLET PO (03:34)
[2017-04-16] MEDS: metroNIDAZOLE 500 MG TABLET PO ×5 (06:38→23:33)
[2017-04-16] MEDS: LACTOBACILLUS RHAMNOSUS GG 1 CAPSULE. PO ×2 (09:00→20:50)
[2017-04-16] MEDS: NEOMY/BACITR/POLYMYXIN OINT PACKET. TP ×2 (09:17→20:56)
[2017-04-16] MEDS: LIDOCAINE (700MG/PATCH) PATCH. TD (09:17)
[2017-04-16] MEDS: INSULIN ASPART 300 UNITS/3 ML INSULN.PEN SQ ×7 (09:27→20:56)
[2017-04-16 12:22] LABS: POC GLUCOSE 307 mg/dL (70-99)
[2017-04-16 12:22] LABS: POC GLUCOSE 137 mg/dL (70-99)
[2017-04-16 17:04] LABS: POC GLUCOSE 94 mg/dL (70-99)
[2017-04-16] MEDS ORDERED: QUEtiapine 25 MG TABLET. PO ×2 (18:00)
[2017-04-16 20:52] LABS: POC GLUCOSE 257 mg/dL (70-99)
[2017-04-16] MEDS: INSULIN DETEMIR 300 UNITS/3 ML INSULN.PEN. SQ (20:55)
[2017-04-17] MEDS: ONDANSETRON ODT 4 MG TAB.RAPDIS. PO (02:22)
[2017-04-17] MEDS: LORazepam 0.5 MG TABLET PO ×2 (02:22→18:39)
[2017-04-17] MEDS: oxyCODONE/APAP 5/325 1 TAB TABLET PO ×2 (02:47→18:41)
[2017-04-17 06:16] LABS: ADD MAN DIFF? NO
[2017-04-17 06:23] LABS: BASO # 0.1 x10^3/uL (0.0-0.2); BASO % 1 % (0-3); EOS # 0.2 x10^3/uL (0.0-0.7); EOS % 2 % (0-3); HEMATOCRIT 43.8 % (39.0-53.0); HEMOGLOBIN 15.1 g/dL (13.0-17.5); LYMPH # 1.9 x10^3/uL (1.0-4.8); LYMPH % 27 % (24-48); MEAN CORPUSCULAR HEMOGLOBIN 31 pg (25-35); MEAN CORPUSCULAR HGB CONC 35 g/dL (31-37); MEAN CORPUSCULAR VOLUME 90 fL (79-100); MONO # 0.7 x10^3/uL (0.0-1.1); MONO % 9 % (0-9); NEUT # 4.4 x10^3uL (1.8-7.7); NEUT % 61 % (31-73); PLATELET COUNT 193 x10^3/uL (140-400); RED BLOOD COUNT 4.84 x10^6/uL (4.30-5.70); RED CELL DISTRIBUTION WIDTH 12.7 % (11.5-14.5); WHITE BLOOD COUNT 7.2 x10^3/uL (4.0-11.0)
[2017-04-17] MEDS: metroNIDAZOLE 500 MG TABLET PO ×3 (06:27→18:09)
[2017-04-17] MEDS: NEOMY/BACITR/POLYMYXIN OINT PACKET. TP ×2 (08:41→22:25)
[2017-04-17 08:42] LABS: POC GLUCOSE 330 mg/dL (70-99)
[2017-04-17] MEDS: LACTOBACILLUS RHAMNOSUS GG 1 CAPSULE. PO ×2 (08:45→22:25)
[2017-04-17] MEDS: LIDOCAINE (700MG/PATCH) PATCH. TD (08:46)
[2017-04-17] MEDS: INSULIN ASPART 300 UNITS/3 ML INSULN.PEN SQ ×5 (08:49→18:14)
[2017-04-17 11:30] LABS: POC GLUCOSE 149 mg/dL (70-99)
[2017-04-17 16:44] LABS: POC GLUCOSE 156 mg/dL (70-99)
[2017-04-17 22:24] LABS: POC GLUCOSE 121 mg/dL (70-99)
[2017-04-17] MEDS: INSULIN DETEMIR 300 UNITS/3 ML INSULN.PEN. SQ (22:29)
[2017-04-18] MEDS: metroNIDAZOLE 500 MG TABLET PO ×4 (00:39→17:30)
[2017-04-18] MEDS: oxyCODONE/APAP 5/325 1 TAB TABLET PO ×3 (00:39→20:57)
[2017-04-18] MEDS: LORazepam 0.5 MG TABLET PO ×2 (02:53→20:35)
[2017-04-18] MEDS: LIDOCAINE (700MG/PATCH) PATCH. TD (08:09)
[2017-04-18] MEDS: LACTOBACILLUS RHAMNOSUS GG 1 CAPSULE. PO ×2 (08:12→20:35)
[2017-04-18] MEDS: NEOMY/BACITR/POLYMYXIN OINT PACKET. TP ×2 (08:12→20:58)
[2017-04-18] MEDS: INSULIN ASPART 300 UNITS/3 ML INSULN.PEN SQ ×6 (08:19→17:38)
[2017-04-18 08:30] LABS: POC GLUCOSE 257 mg/dL (70-99)
[2017-04-18 11:42] LABS: POC GLUCOSE 83 mg/dL (70-99)
[2017-04-18 17:09] LABS: POC GLUCOSE 302 mg/dL (70-99)
[2017-04-18 21:08] LABS: POC GLUCOSE 140 mg/dL (70-99)
[2017-04-18] MEDS: INSULIN DETEMIR 300 UNITS/3 ML INSULN.PEN. SQ (21:44)
[2017-04-19] MEDS: metroNIDAZOLE 500 MG TABLET PO ×4 (05:50→17:52)
[2017-04-19] MEDS: INSULIN ASPART 300 UNITS/3 ML INSULN.PEN SQ ×6 (07:30→18:00)
[2017-04-19 08:15] LABS: POC GLUCOSE 85 mg/dL (70-99)
[2017-04-19] MEDS: NEOMY/BACITR/POLYMYXIN OINT PACKET. TP ×2 (09:20→21:11)
[2017-04-19] MEDS: LORazepam 0.5 MG TABLET PO ×2 (09:20→21:10)
[2017-04-19] MEDS: LACTOBACILLUS RHAMNOSUS GG 1 CAPSULE. PO ×2 (09:20→21:11)
[2017-04-19] MEDS: LIDOCAINE (700MG/PATCH) PATCH. TD (09:22)
[2017-04-19 12:24] LABS: POC GLUCOSE 214 mg/dL (70-99)
[2017-04-19] MEDS: HALOPERIDOL 5 MG TABLET. PO (12:26)
[2017-04-19 14:59] LABS: POC GLUCOSE 136 mg/dL (70-99)
[2017-04-19 17:46] LABS: POC GLUCOSE 287 mg/dL (70-99)
[2017-04-19 20:50] LABS: POC GLUCOSE 372 mg/dL (70-99)
[2017-04-19] MEDS: oxyCODONE/APAP 5/325 1 TAB TABLET PO (21:11)
[2017-04-19] MEDS: INSULIN DETEMIR 300 UNITS/3 ML INSULN.PEN. SQ (22:07)
[2017-04-20] MEDS: metroNIDAZOLE 500 MG TABLET PO ×4 (00:56→17:19)
[2017-04-20] MEDS: HALOPERIDOL 5 MG TABLET. PO (04:15)
[2017-04-20] MEDS: oxyCODONE/APAP 5/325 1 TAB TABLET PO ×2 (04:15→18:41)
[2017-04-20] MEDS: LORazepam 0.5 MG TABLET PO (06:03)
[2017-04-20 07:51] LABS: POC GLUCOSE 276 mg/dL (70-99)
[2017-04-20] MEDS: LACTOBACILLUS RHAMNOSUS GG 1 CAPSULE. PO (08:46)
[2017-04-20] MEDS: LIDOCAINE (700MG/PATCH) PATCH. TD (08:47)
[2017-04-20] MEDS: INSULIN ASPART 300 UNITS/3 ML INSULN.PEN SQ ×6 (08:54→17:24)
[2017-04-20] MEDS: NEOMY/BACITR/POLYMYXIN OINT PACKET. TP (08:56)
[2017-04-20 11:40] LABS: POC GLUCOSE 91 mg/dL (70-99)
[2017-04-20 11:40] LABS: POC GLUCOSE 65 mg/dL (70-99)
[2017-04-20 17:24] LABS: POC GLUCOSE 197 mg/dL (70-99)
== END 2017-04-20 20:10 | disposition home or self-care (01) | DRG 854 ==
LOC: 4 NORTH 20:58
PROVIDERS: Internal Medicine Hematology & Oncology
PROC: 0W960ZZ Drainage of Neck, Open Approach (ICD-10-PCS; principal; 2017-03-26 11:22)
DX: A41.9 Sepsis, unspecified organism (principal); A04.72 Enterocolitis due to Clostridium difficile, not specified as recurrent; F25.0 Schizoaffective disorder, bipolar type; E11.65 Type 2 diabetes mellitus with hyperglycemia; L02.11 Cutaneous abscess of neck; F17.210 Nicotine dependence, cigarettes, uncomplicated; F41.9 Anxiety disorder, unspecified; G89.29 Other chronic pain; J45.909 Unspecified asthma, uncomplicated; Z59.0 Homelessness; Z79.4 Long term (current) use of insulin; F10.10 Alcohol abuse, uncomplicated; M54.5 Low back pain; M15.9 Polyosteoarthritis, unspecified; B95.61 Methicillin susceptible Staphylococcus aureus infection as the cause of diseases classified elsewhere
CPT/HCPCS: 36415; 80048; 80202; 82962; 83036; 85025; 85651; 87040; 87045; 87070; 87071; 87075; 87186; 87205; 87324; J0696; J1100; J1170; J1650; J1815; J2250; J2405; J2543; J2704; J3010; J3370; J7030; Q0162